=== PATIENT | female | born 1975 | race African-American/Black ===

== ENCOUNTER → 2016-11-28 | Outpatient (CLI) | payer BC, OTHER ==
[2015-05-04 08:32] VITALS: BP 146/90
--- NOTE | 2016-11-28 08:41 | RAD ---
Exam performed: Pelvic Ultrasound. Indication: Pelvic pain, left ovarian cyst Date of Service: 11/28/16. Comparison: None available Technique: Transabdominal and transvaginal Findings: The uterus is anteverted and measures8.8 x 5.6 x 5.4 cm. The endometrial stripe is barely perceptible Neither of the 2 ovaries is seen either by transabdominal or transvaginal scanning There is no solid or cystic mass lesion. No free fluid Impression: 1. Normal uterus with nonvisualized ovaries.
== END | disposition home or self-care (01) ==
LOC: US 07:08
PROVIDERS: ATTEND Obstetrics & Gynecology
DX: N83.202 Unspecified ovarian cyst, left side (principal)
CPT/HCPCS: 76830; 76856

== ENCOUNTER → 2016-12-25 | Day surgery (SDC) | payer BC, OTHER ==
[~2016-12-25] VITALS: Ht 170.2 cm; Wt 114.3 kg
[~2016-12-25] MED LIST: BUPIVACAINE-EPI 0.25%-1:200000 MPF 30 ML VIAL. ONE; CHLO25TA PO; CYCL10TA2 PO; DESFLURANE > 120 MINUTES IH ONE; DOCU100C28 PO; ESMOLOL 100 MG/10 ML VIAL. IV ONE; FLUT16SP NS; HYDROmorphone 2 MG/ML VIAL IV PRN; IBUP-1060 PO; IBUPROFEN 800 MG TABLET. PO PRN; ISOFLURANE > 120 MINUTES. IH ONE; IV RINGERS,LACTATED 1000ML 1,000 ML IV SCH; LAMO100T PO; LIDOCAINE 1% PF 2 ML VIAL. ID PRN; LIDOCAINE 2% PF Vial for OR 5 ML VIAL. ONE; LORA10TA3 PO; LOSA100T6 PO; MELO15TA23 PO; METHYLENE BLUE 1% 10 ML VIAL. ONE; MIDAZOLAM HCL/PF 2 MG/2 ML VIAL. ONE; MONT10TA9 PO; MORPHINE SULFATE 2 MG/ML DISP.SYRIN. IV PRN; NEOSTIGMINE 10 MG/10 ML VIAL. ONE; ONDANSETRON PF 4 MG/2 ML VIAL. IV PRN; ONDANSETRON PF 4 MG/2 ML VIAL. ONE; PARO20TA3 PO; PROCHLORPERAZINE 10 MG/2 ML VIAL. IV PRN; PROPOFOL 20 ML IV ONE; RANI150T2 PO; SEVOFLURANE 31 TO 60 MINUTES. IH ONE; SURGICEL HEMOSTAT 4X8 EACH. ONE; fentaNYL PF VIAL 100 MCG/2 ML VIAL IV PRN; fentaNYL PF VIAL 100 MCG/2 ML VIAL ONE
[2016-12-25 12:35] LABS: NEG OBC UR NEG; POS OBC UR POS
--- NOTE | 2016-12-25 15:24 | PDOC ---
BRIEF OPERATIVE NOTE Pre-Op Diagnosis 1. MANOLO Cyst 2. CPP Post-Op Diagnosis CPP Procedure Performed Dx [facility] Surgeon Dr. Bruner Anesthesia Type: General Blood Loss less than 5 ml Specimens Obtained none Findings nml size uterus, nml fallopian tubes and ovaries musa.; pelvic varicosities of IFP vessels Complications none JUAN ANTONIO BRUNER Jr, MD Dec 25, 2016 15:24
--- NOTE | 2016-12-25 15:24 | DISCH ---
DISCHARGE INSTRUCTIONS Condition on Discharge Condition on Discharge: Stable Activity After Discharge Activity Instructions for Disc: Activity as tolerated Lifting Instructions after Dis: No heavy lifting Driving Instructions after Dis: Do not drive today Diet after Discharge Diet after Discharge: Regular Contacting the [facility] after DC Call your doctor for: Concerns you may have Follow-Up Follow up with: Dr. Bruner in 1 week JUAN ANTONIO BRUNER Jr, MD Dec 25, 2016 15:24
[2016-12-25 16:54] VITALS: BP 124/77
--- NOTE | 2016-12-25 19:28 | OP ---
DATE OF SURGERY: PREOPERATIVE DIAGNOSES: 1. Left ovarian cyst. 2. Chronic pelvic pain. POSTOPERATIVE DIAGNOSIS: Chronic pelvic pain. PROCEDURE: Diagnostic laparoscopy. SURGEON: Gigi Bruner M.D. ANESTHESIA: GETA. ESTIMATED BLOOD LOSS: Less than 5 mL. COMPLICATIONS: None. FINDINGS: Normal-sized uterus, normal fallopian tubes and ovaries bilaterally, pelvic varicosities of ____ vessels. SUMMARY: This is a 41-year-old female with chronic pelvic pain and left ovarian cyst of 2-cm size. The patient was counseled on risks, benefits and expectations and laparoscopic left ovarian cystectomy and voiced a clear understanding to proceed. DESCRIPTION OF PROCEDURE: The patient was taken to surgery suite and placed in the dorsal lithotomy position. She was prepped with ChloraPrep and draped in a sterile fashion. She was also prepped with Betadine for vaginal prep. Tasley speculum was placed vaginally. The anterior lip of the cervix was grasped with single-tooth tenaculum. Lama uterine manipulator was then placed. The bivalve speculum was removed. Attention was now placed on abdomen. A supraumbilical incision was made with a scalpel. The Veress needle was then placed through the supraumbilical incision site. The abdomen was allowed to insufflate up to 1 liter of CO2 gas. The Veress needle was then removed. A 5-mm trocar was placed. Scope was positioned. The uterus appeared normal size. The fallopian tubes and ovaries appeared normal bilaterally. There were pelvic varicosities of the infundibulopelvic vessels bilaterally. There was no evidence of endometriosis or adhesions. Left lower quadrant incision was made with a scalpel, and a 5-mm trocar was placed. Suction irrigation was taken place. Small amount of normal saline was left in the posterior cul-de-sac. The trocars were then removed under direct visualization. Abdomen was allowed to deflate as much as possible along with mechanical manipulation. The two skin incisions were reapproximated using a 4-0 Vicryl suture in a subcuticular manner. 0.25% Marcaine with epinephrine was injected at each incision site. The uterine acorn manipulator and single-tooth tenaculum were removed. The patient tolerated the procedure well and was taken to recovery room in stable condition. Sponge and needle counts were correct x 3. GIGI BRUNER MD DR: SHANIKA/mio JOB#: [id number] / [id number]
== END | disposition home or self-care (01) ==
LOC: SURG 11:12
PROVIDERS: ATTEND Obstetrics & Gynecology
DX: N83.202 Unspecified ovarian cyst, left side (principal); I86.2 Pelvic varices; E78.00 Pure hypercholesterolemia, unspecified; I10 Essential (primary) hypertension; E66.9 Obesity, unspecified; Z68.39 Body mass index [BMI] 39.0-39.9, adult; F32.9 Major depressive disorder, single episode, unspecified; Z86.69 Personal history of other diseases of the nervous system and sense organs; Z88.8 Allergy status to other drugs, medicaments and biological substances
CPT/HCPCS: 49320; 81025; A4215; C1782; J0690; J1170; J2250; J2405; J2704; J2710; J3010; J3490; J7030; Q9968; J2001